=== PATIENT | female | born 1965 | race Hispanic/Latino ===

== ENCOUNTER → 2016-12-15 | Outpatient (CLI) | payer OTHER ==
--- NOTE | 2016-12-15 14:27 | Diagnostic Imaging Report ---
Transabdominal and transvaginal pelvic ultrasound. INDICATION: Abnormal uterine bleeding. FINDINGS: The uterus is 11.6 x 8 x 8.1 cm. It is lobulated with multiple fibroids seen, the largest is 4.3 x 2.9 x 4.1 cm seen partially exophytic along the fundus. There are multiple fibroids probably 7-8 discrete lesions. The endometrial stripe is obscured. The right ovary is 3.9 x 2.6 x 2.4 cm and demonstrates color Doppler flow. The left ovary is obscured by bowel gas. IMPRESSION: Heterogeneous enlarged uterus with multiple discrete masses suggestive of fibroids. The endometrial stripe is not evaluated, due to multiple fibroids obscuring it. Dictated by: Dictated on workstation # [id number]
== END ==
LOC: RAD 12:26
PROVIDERS: ATTEND Nurse Practitioner Family
DX: D25.9 Leiomyoma of uterus, unspecified (principal); N85.2 Hypertrophy of uterus; N93.8 Other specified abnormal uterine and vaginal bleeding
CPT/HCPCS: 76830; 76856